=== PATIENT | male | born 1975 | race African-American/Black ===

== ENCOUNTER 2022-12-14 03:32 | Emergency (ER) | payer MEDICAID ==
[~2022-12-14] VITALS: Ht 165.1 cm; Wt 60.0 kg
[2022-12-14 03:40] VITALS: BP 167/100; PULSE 93; RESP 20; TEMP 97.6; O2SAT 98
== END 2022-12-14 04:41 | disposition left against medical advice (07) ==
LOC: ER 03:32
DX: Z53.21 Procedure and treatment not carried out due to patient leaving prior to being seen by health care provider (principal)